=== PATIENT | male | born 1960 | race Caucasian/White ===

== ENCOUNTER 2016-06-06 09:01 | Emergency (ER) | payer OTHER ==
[~2016-06-06] VITALS: Ht 175.3 cm; Wt 80.0 kg
[~2016-06-06 09:01] MED LIST: IBUP800T23 PO; METH750T2 PO; [UNRECOGNIZED DRUG - REMARK]
[2016-06-06 09:10] VITALS: BP 132/80; PULSE 62; RESP 15; TEMP 97.8; O2SAT 97
--- NOTE | 2016-06-06 09:48 | PD ---
HPI Chief Complaint: Medical Clearance Time Seen by Provider: 09:33 Travel History International Travel<30 days: No Contact w/Intl Traveler<30days: No Traveled to known affect area: No History of Present Illness HPI This patient complains of head injury. Duration is 21 hours. He was working at [employer] and a 16-year-old accidentally head butted him. He does not have any headache. There was no LOC. No neck pain. He does have some bruising around the right eye and he was advised to get it checked out. His vision is baseline. PFSH Past Medical History Cardiovascular Problems: Yes (HTN) GERD: Yes Genitourinary: Yes (H/O UTI, kidney stones) Hypertension: Yes Social History Alcohol Use: No Tobacco Use: No Substance Use: No Allergies-Medications (Allergen,Severity, Reaction): Coded Allergies: Penicillin (Verified Allergy, Unknown, 06/06/16) Reported Meds & Prescriptions Reported Meds & Active Scripts Active Reported [Unk Bp Pill] HS Review of Systems General / Constitutional: No: Fever Cardiovascular: No: Chest Pain or Discomfort Respiratory: No: Cough Physical Exam Narrative NEUROLOGICAL: Awake and alert. Pupils are equal round and reactive. Motor and sensory grossly within normal limits. Five out of 5 muscle strength in all muscle groups. Normal speech. SKIN: Inspection shows no rash or ulcers. Palpation shows no induration or nodules. Face: He has some ecchymosis about the superior orbital rim. There is no tenderness or instability or crepitus there. Extraocular muscles are intact Pupil function is normal No mandible tenderness Data Data Last Documented VS Vital Signs Date Time Temp Pulse Resp B/P Pulse Ox O2 Delivery O2 Flow Rate FiO2 06/06/16 09:10 97.8 62 15 132/80 97 MDM Medical Decision Making Medical Screen Exam Complete: Yes Emergency Medical Condition: Yes Medical Record Reviewed: Yes Differential Diagnosis Concussion, shoulder contusion, orbit fracture Narrative Course I have reviewed the patient's electronic medical record. Patient will receive head injury precautions. He is neurologically intact with no headache and no blood thinners. I don't feel like he needs emergent CT scan of the brain at this time. His injury was yesterday Diagnosis Primary Impression: Head injury Qualified Code: S09.90XA - Head injury, initial encounter Additional Instructions: The patient was advised to follow up with their physician and return if they worsen. Use head injury precautions Med/Other Pt SpecificInfo: Other Disposition: 01 DISCHARGE HOME (Heart) Condition: Stable Jr Harris MD Jun 06, 2016 09:47
== END 2016-06-06 10:26 | disposition home or self-care (01) ==
LOC: NEPB 09:01
DX: S09.90XA Unspecified injury of head, initial encounter (principal); W50.0XXA Accidental hit or strike by another person, initial encounter; Y92.531 Health care provider office as the place of occurrence of the external cause; Y99.0 Civilian activity done for income or pay
CPT/HCPCS: 99283